=== PATIENT | male | born 2000 | race Caucasian/White ===

== ENCOUNTER 2025-04-19 06:12 | Day surgery (SDC) | payer BC, SELFPAY ==
[2025-04-19 10:36] VITALS: BMI 22.3
[2025-04-19 10:38] VITALS: BMI 22.3
[2025-04-19] MEDS: CELEBREX 200 MG PO (10:42)
[2025-04-19] MEDS: TYLENOL 1000 MG PO (10:42)
[2025-04-19] MEDS: NORMOSOL-R/PLASMALYTE-A 1000 IV (10:48)
[2025-04-19 11:15] VITALS: BP 130/70
[2025-04-19 15:05] VITALS: BP 119/69; BP 130/70
[2025-04-19 15:15] VITALS: BP 123/70
[2025-04-19 15:30] VITALS: BP 124/76
[2025-04-19 15:45] VITALS: BP 118/70
[2025-04-19 16:00] VITALS: BP 125/78
== END 2025-04-19 16:35 | disposition home or self-care (01) ==
LOC: SDS 06:12
PROVIDERS: ATTENDING PHYSICIAN Orthopaedic Surgery Hand Surgery
DX: M25.521 Pain in right elbow (principal)
CPT/HCPCS: 24344; C1713; 87070